=== PATIENT | female | born 1975 | race Caucasian/White ===

== ENCOUNTER 2016-06-26 19:35 | Emergency (ER) | payer SELFPAY ==
[2016-06-26 20:01] LABS: Bilirubin Negative (Negative); Blood, Urine Negative (Negative); Clarity Clear (Clear); Glucose, Urine (Dipstick) Negative (Negative); Leukocyte Negative (Negative); Nitrite Negative (Negative); Protein, Urine (Dipstick) Negative (Neg-Trace); Specific Gravity, Urine 1.015 (1.005-1.030); Urobilinogen 0.2 mg/dL (0.2-1.0); pH, Urine 7.5 (5.0-9.0)
[2016-06-26] MEDS ORDERED: Ketorolac Tromethamine 60 MG/2 ML VIAL ONE (20:14)
[2016-06-26] MEDS ORDERED: Ondansetron ODT 4 MG TAB ONE (20:14)
== END 2016-06-26 20:35 ==
LOC: MADERS 19:35
DX: R51 Headache (principal)
CPT/HCPCS: 81003; 96372; J1885; Q0162

== ENCOUNTER 2016-07-16 18:06 | Emergency (ER) | payer SELFPAY | END 2016-07-16 18:51 | disposition home or self-care (01) | LOC: MADERS 18:06 | DX: H66.91 Otitis media, unspecified, right ear (principal); J40 Bronchitis, not specified as acute or chronic | CPT/HCPCS: 99282 ==

== ENCOUNTER 2017-06-01 22:50 | Emergency (ER) | payer SELFPAY ==
[2017-06-01] MEDS ORDERED: Benzonatate 100 MG CAP ONE (23:35)
[2017-06-01] MEDS ORDERED: predniSONE 20 MG TAB ONE (23:35)
[2017-06-01] MEDS ORDERED: AMOXicillin 250 MG CAP ONE (23:35)
[2017-06-01] MEDS ORDERED: Naproxen 500 MG TAB ONE (23:35)
[2017-06-01] MEDS ORDERED: HYDROcodone/Acetaminophen 10/325 mg Tablet ONE (23:42)
== END 2017-06-01 23:46 | disposition home or self-care (01) ==
LOC: MADERS 22:50
DX: J20.9 Acute bronchitis, unspecified (principal)
CPT/HCPCS: 99283; J7506

== ENCOUNTER 2017-06-07 16:25 | Emergency (ER) | payer SELFPAY | END 2017-06-07 17:28 | disposition home or self-care (01) | LOC: MADERS 16:25 | DX: J20.9 Acute bronchitis, unspecified (principal) | CPT/HCPCS: 99283 ==

== ENCOUNTER 2018-01-30 20:27 | Emergency (ER) | payer SELFPAY | END 2018-01-30 21:04 | disposition home or self-care (01) | LOC: MADERS 20:27 | DX: R21 Rash and other nonspecific skin eruption (principal) | CPT/HCPCS: 99281 ==

== ENCOUNTER 2019-04-05 23:06 | Emergency (ER) | payer SELFPAY | END 2019-04-05 23:33 | disposition home or self-care (01) | LOC: MADERS 23:06 | DX: J06.9 Acute upper respiratory infection, unspecified (principal) | CPT/HCPCS: 99282 ==